=== PATIENT | female | born 1930 | race Caucasian/White ===

== ENCOUNTER 2017-11-01 18:40 | Emergency (ER) | payer OTHER ==
[~2017-11-01] VITALS: Ht 162.6 cm; Wt 59.0 kg
[~2017-11-01 18:40] MED LIST: ADULT LOW DOSE81 MG PO; ASPIRIN EC325 M1 PO; CALCIUM + D SO1 EACH PO; CLONIDINE HCL0.1 MG PO; FISH OIL 1,0001 EAC5 PO; FISH OIL 1,001000 M2 PO; GLUCOPHAGE500 MG PO; LEVAQUIN 500 M500 M2 PO; LEVOTHYROXINE0.05 MG PO; LISINOPRIL-HCT1 EAC1 PO; METHYLPREDNISOLO4 M1 PO; MULTI VITAMIN1 EACH PO; NORCO 5-325 TA1 EACH PO; NORVASC2.5 MG PO; OMEPRAZOLE 20 M20 M1 PO; OXYCODONE HCL 55 MG PO; PRINIVIL10 MG PO; PRINIVIL5 MG PO; RECLAST 55 MG/1002; RISPERDAL 1 MG T1 MG PO; TRIAMTERENE-HC1 EAC1; TUMS PO; VITAMIN D1000 UNI1 PO; VITAMIN D400 UNI1 PO; VITAMINC500 PO
[2017-11-01 20:55] VITALS: BP 180/85
== END 2017-11-01 20:55 | disposition home or self-care (01) ==
LOC: M.ERS 18:40
DX: S91.112A Laceration without foreign body of left great toe without damage to nail, initial encounter (principal); I10 Essential (primary) hypertension; E11.9 Type 2 diabetes mellitus without complications; M81.0 Age-related osteoporosis without current pathological fracture; M19.90 Unspecified osteoarthritis, unspecified site; Z88.0 Allergy status to penicillin; Z88.8 Allergy status to other drugs, medicaments and biological substances; W20.8XXA Other cause of strike by thrown, projected or falling object, initial encounter; Y93.89 Activity, other specified; Y92.89 Other specified places as the place of occurrence of the external cause; Y99.8 Other external cause status